=== PATIENT | female | born 1955 | race Caucasian/White ===

== ENCOUNTER → 2019-07-24 10:06 | Outpatient (CLI) | payer MEDICARE, BC ==
[2015-12-16 15:21] VITALS: BMI 30.6
[~2019-07-24 10:06] MED LIST: BAYER CHEWABLE81 MG PO; BYSTOLIC10 MG PO; LIPITOR10 MG PO; LOZOL1.25 MG PO; RYTHMOL225 MG PO
--- NOTE | 2019-07-25 15:54 | EC ---
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 Ao 173 cm/sec RVOT 73 cm/sec RA cm/sec PA 136 cm/sec AV Gradient Peak 12.02mmHg AV Mean 6.36 mmHg AV Area 1.9 cm MV Gradient Peak 5.40 mmHg MV Mean 2.46 mmHg MV Area cm COMMENTS: Volumetric Weigher: 2 RACHELL BLOOM Tub Tender: 3 Dr. Toney TAPE# PACS Pericardial Effusion N DATE OF SERVICE: Adequate 2D, color flow imaging, spectral Doppler, and M-Mode Mild LVH. LV internal dimensions are normal. Wall motion is normal. EF is greater than or equal to 55%. Aortic valve is tricuspid. No evidence of stenosis by Doppler interrogation. Left atrium is upper limits of normal to mildly dilated. Mitral valve shows no prolapse. Mild plus MR. Right-sided chambers are grossly normal. Mild TR. ECHOCARDIOGRAM REPORT [id number] SERGO SUGGS TRANSINT:[id number] Voice Confirmation ID: [id number] DOCUMENT ID: [id number] ZOHAIB WONG MD at 1554 CC: [id number] DICTATION DATE: 07/25/19 1317 SUSTAINABLE AGRICULTURE SPECIALIST: 07/25/19 1344 DEP CLI 07/24/19 [place] [id number] [place] [id number]
== END | disposition home or self-care (01) ==
LOC: D.HCCECHO 10:06
PROVIDERS: ATTEND Internal Medicine Interventional Cardiology
DX: I10 Essential (primary) hypertension (principal)